=== PATIENT | male | born 1995 | race Caucasian/White ===

== ENCOUNTER 2019-09-16 20:53 | Emergency (ER) | payer OTHER ==
[~2019-09-16] VITALS: Ht 175.3 cm; Wt 72.7 kg
[2019-09-16 21:07] VITALS: TEMP 99
[2019-09-16 21:38] LABS: COLLECTION METHOD CLEAN CATCH
[2019-09-16 21:42] LABS: HEMOGLOBIN 17.8 g/dl (13.5-18.0); MEAN CELL VOLUME 95 fl (80.0-100.0); MEAN CORPUSCULAR HEMOGLOBIN 33 pg (27.0-31.0); MEAN CORPUSCULAR HGB CONC 34 g/dl (33.0-37.0); MEAN PLATELET VOLUME 11.2 fl (7.4-10.4); PLATELET COUNT 170 K/mm3 (130-400); RED BLOOD COUNT 5.47 M/mm3 (4.20-5.60); REDCELL DISTRIBUTION WIDTH-CV 12.3 % (11.5-14.5)
[2019-09-16 21:43] LABS: HEMATOCRIT 52.1 % (42.0-52.0)
[2019-09-16 21:46] LABS: MUCOUS Present /lpf; PH 5 (5-8); SQUAMOUS EPITHELIAL 0-2 /hpf; URINE APPEARANCE Clear; URINE BACTERIA None Seen /hpf; URINE BILIRUBIN Negative (NEGATIVE); URINE BLOOD Negative (NEGATIVE); URINE COLOR Yellow; URINE GLUCOSE Negative (NEGATIVE); URINE KETONE 1+ (NEGATIVE); URINE LEUKOCYTE ESTERASE Negative (NEGATIVE); URINE NITRATE Negative (NEGATIVE); URINE PROTEIN(semi-quant) 1+ (NEGATIVE); URINE RBC 0-2 /hpf
[2019-09-16 22:27] LABS: ALBUMIN 4.8 gm/dL (3.5-5.0); BILIRUBIN,TOTAL 1.5 mg/dL (0.0-1.0); C-REACTIVE PROTEIN 0.8 mg/dL (0.0-0.9); CALCIUM 9.6 mg/dL (8.4-10.2); CREATININE, serum 1.08 (0.66-1.25); POTASSIUM 4.2 mmol/L (3.4-5.0); TOTAL PROTEIN 8.4 gm/dL (6.4-8.2)
[2019-09-16 22:30] LABS: BAND 4 % (0-10); LYMPHOCYTE 1 % (20.0-51.0); NEUTROPHILS 92 % (42.0-75.2); PLATELET ESTIMATE NORMAL (NORMAL)
[2019-09-16] MEDS ORDERED: ZOFRAN ODT4 MG PO (23:41)
[2019-09-16] MEDS ORDERED: NORCO 325 MG-51 TAB PO (23:41)
[2019-09-16] MEDS ORDERED: FLAGYL500 MG PO (23:41)
[2019-09-16] MEDS ORDERED: CIPRO 500MG TA500 MG PO (23:41)
[2019-09-16 23:50] VITALS: BP 116/81; PULSE 90
== END 2019-09-16 23:59 | disposition home or self-care (01) ==
LOC: COL.ER 20:53
PROVIDERS: Nurse Practitioner
DX: K52.9 Noninfective gastroenteritis and colitis, unspecified (principal); F17.290 Nicotine dependence, other tobacco product, uncomplicated
CPT/HCPCS: J1170; J2405; J7030; Q9967